=== PATIENT | female | born 2000 | race Caucasian/White ===

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

== ENCOUNTER 2020-12-20 13:23 | Emergency (ER) | payer OTHER ==
[~2020-12-20 13:23] MED LIST changes: +PROTONIX40 MG PO; +ZOFRAN ODT 4 MG4 MG SL; +ZOFRAN4 MG PO
[2020-12-20] MEDS ORDERED: AUGMENTIN 875-1 EACH PO (14:57)
[2020-12-21] MEDS ORDERED: HYDROCODON-ACE1 EAC4 PO (04:06)
== END 2020-12-20 15:06 | disposition home or self-care (01) ==
LOC: ER1 13:23
DX: O99.612 Diseases of the digestive system complicating pregnancy, second trimester (principal); K05.219 Aggressive periodontitis, localized, unspecified severity; Z3A.19 19 weeks gestation of pregnancy
CPT/HCPCS: 99282

== ENCOUNTER 2020-12-21 02:27 | Emergency (ER) | payer OTHER ==
[~2020-12-21 02:27] MED LIST changes: +AUGMENTIN 875-1 EACH PO
[2020-12-21] MEDS ORDERED: HYDROCODON-ACE1 EAC4 PO (04:06)
== END 2020-12-21 04:30 | disposition home or self-care (01) ==
LOC: ER1 02:27
DX: K02.9 Dental caries, unspecified (principal); K05.10 Chronic gingivitis, plaque induced; Z79.899 Other long term (current) drug therapy
CPT/HCPCS: 99283

== ENCOUNTER 2021-01-16 19:50 | Emergency (ER) | payer OTHER ==
[~2021-01-16 19:50] MED LIST changes: +HYDROCODON-ACE1 EAC4 PO
== END 2021-01-16 20:00 | disposition left against medical advice (07) ==
LOC: ER1 19:50
DX: Z53.21 Procedure and treatment not carried out due to patient leaving prior to being seen by health care provider (principal)

== ENCOUNTER 2021-02-24 21:06 | Outpatient (CLI) | payer OTHER | END 2021-02-24 23:04 | disposition home or self-care (01) | LOC: GENOP 21:06 | DX: O47.03 False labor before 37 completed weeks of gestation, third trimester (principal); O99.013 Anemia complicating pregnancy, third trimester; D64.9 Anemia, unspecified; O99.353 Diseases of the nervous system complicating pregnancy, third trimester; G43.909 Migraine, unspecified, not intractable, without status migrainosus; Z3A.28 28 weeks gestation of pregnancy | CPT/HCPCS: 59025; 81001; 82731 ==

== ENCOUNTER 2021-03-19 14:20 | Emergency (ER) | payer OTHER ==
[2021-03-19 14:51] LABS: HEMOGLOBIN 9.9 gm/dl (12.3-15.3); RED BLOOD COUNT 3.61 M/UL (4.00-5.10); WHITE BLOOD COUNT 9.5 K/UL (4.5-11.0)
[2021-03-19 15:12] LABS: BUN/CREATININE RATIO 15 (0-10)
== END 2021-03-19 16:35 | disposition home or self-care (01) ==
LOC: ER1 14:20
PROVIDERS: Emergency Medicine
DX: O99.891 Other specified diseases and conditions complicating pregnancy (principal); R55 Syncope and collapse; Z3A.31 31 weeks gestation of pregnancy
CPT/HCPCS: 80053; 81001; 82550; 82553; 82731; 83874; 83880; 84484; 85025; 93005; 99284

== ENCOUNTER 2021-04-18 11:31 | Outpatient (CLI) | payer OTHER | END 2021-04-18 13:37 | disposition home or self-care (01) | LOC: GENOP 11:31 | DX: O36.8330 Maternal care for abnormalities of the fetal heart rate or rhythm, third trimester, not applicable or unspecified (principal); Z3A.35 35 weeks gestation of pregnancy | CPT/HCPCS: G0463 ==

== ENCOUNTER 2021-05-09 11:49 | Outpatient (CLI) | payer OTHER | END 2021-05-09 14:44 | disposition home or self-care (01) | LOC: GENOP 11:49 | DX: O47.1 False labor at or after 37 completed weeks of gestation (principal); O99.353 Diseases of the nervous system complicating pregnancy, third trimester; G43.909 Migraine, unspecified, not intractable, without status migrainosus; O99.013 Anemia complicating pregnancy, third trimester; D64.9 Anemia, unspecified; Z3A.38 38 weeks gestation of pregnancy | CPT/HCPCS: 81001; 87086; G0463 ==

== ENCOUNTER 2021-05-11 16:37 | Inpatient (IN) | payer OTHER ==
[~2021-05-11] VITALS: Ht 170.2 cm; Wt 78.0 kg
[2021-05-11 18:21] LABS: HEMOGLOBIN 9.7 gm/dl (12.3-15.3); RED BLOOD COUNT 3.87 M/UL (4.00-5.10); WHITE BLOOD COUNT 10.1 K/UL (4.5-11.0)
[2021-05-12] MEDS ORDERED: IBUPROFEN600 MG PO (11:17)
[2021-05-12] MEDS ORDERED: COLACE 100MG C100 MG PO (11:17)
[2021-05-13 08:48] LABS: HEMOGLOBIN 9.6 gm/dl (12.3-15.3)
[2021-05-13] MEDS ORDERED: FERROUS FUMARA324 MG PO (10:31)
== END 2021-05-13 16:04 | disposition home or self-care (01) | DRG 807 ==
LOC: GENOP 16:37 → OB 17:04
PROVIDERS: Obstetrics & Gynecology; ADMIT Obstetrics & Gynecology
PROC: 10E0XZZ Delivery of Products of Conception, External Approach (ICD-10-PCS; principal; 2021-05-12)
PROC: 10H07YZ Insertion of Other Device into Products of Conception, Via Natural or Artificial Opening (ICD-10-PCS; 2021-05-12)
PROC: 3E033VJ Introduction of Other Hormone into Peripheral Vein, Percutaneous Approach (ICD-10-PCS; 2021-05-12)
DX: O99.892 Other specified diseases and conditions complicating childbirth (principal); Z37.0 Single live birth; Z3A.38 38 weeks gestation of pregnancy; Z98.890 Other specified postprocedural states
CPT/HCPCS: 36415; 81001; 85014; 85018; 85025; 87086; 90471; 90472; 90707; G0463; J0595; J7030; J7120; U0003

== ENCOUNTER 2021-12-31 20:50 | Emergency (ER) | payer OTHER ==
[~2021-12-31 20:50] MED LIST changes: +FERROUS FUMARA324 MG PO; +IBUPROFEN600 MG PO
[2021-12-31 21:06] LABS: RED BLOOD COUNT 4.57 M/UL (4.00-5.10); WHITE BLOOD COUNT 7.6 K/UL (4.5-11.0)
[2021-12-31 21:30] LABS: BUN/CREATININE RATIO 12 (0-10)
== END 2022-01-01 00:07 | disposition home or self-care (01) ==
LOC: ER1 20:50
PROVIDERS: Student in an Organized Health Care Education/Training Program
DX: E86.0 Dehydration (principal); R00.2 Palpitations
CPT/HCPCS: 80053; 81001; 84703; 85025; 93005; 96374; 99284; J2405

== ENCOUNTER 2022-05-21 02:58 | Emergency (ER) | payer OTHER ==
[2022-05-21 03:56] LABS: HEMOGLOBIN 10.8 gm/dl (12.3-15.3); RED BLOOD COUNT 4.05 M/UL (4.00-5.10); WHITE BLOOD COUNT 7.9 K/UL (4.5-11.0)
[2022-05-21 04:23] LABS: BUN/CREATININE RATIO 10 (0-10)
[2022-05-21] MEDS ORDERED: REGLAN10 MG PO (04:40)
[2022-05-21] MEDS ORDERED: BENTYL 20MG TAB20 MG PO (04:40)
== END 2022-05-21 05:00 | disposition home or self-care (01) ==
LOC: ER1 02:58
PROVIDERS: Physician Assistant
DX: O03.9 Complete or unspecified spontaneous abortion without complication (principal); R40.2410 Glasgow coma scale score 13-15, unspecified time
CPT/HCPCS: 80053; 84702; 85025; 99284

== ENCOUNTER → 2022-05-22 | Outpatient (CLI) | payer OTHER ==
[~2022-05-22] MED LIST changes: +BENTYL 20MG TAB20 MG PO; +REGLAN10 MG PO
== END ==
LOC: LAB 10:57
DX: O20.0 Threatened abortion (principal)
CPT/HCPCS: 36415; 84702